=== PATIENT | female | born 1950 | race Caucasian/White ===

== ENCOUNTER → 2023-04-20 07:46 | Outpatient (REF) | payer MEDICARE, SELFPAY | LOC: RAD 07:46 | PROVIDERS: ATTENDING PHYSICIAN Family Medicine | DX: M85.80 Other specified disorders of bone density and structure, unspecified site (principal) | CPT/HCPCS: 77080 ==

== ENCOUNTER → 2023-04-26 08:50 | Outpatient (REF) | payer MEDICARE, SELFPAY | LOC: DHCBS MAIN 08:50 | PROVIDERS: ATTENDING PHYSICIAN Internal Medicine Cardiovascular Disease; FAMILY PHYSICIAN Family Medicine | DX: I49.8 Other specified cardiac arrhythmias (principal); I34.0 Nonrheumatic mitral (valve) insufficiency | CPT/HCPCS: 93306 ==

== ENCOUNTER 2023-05-24 14:46 | Emergency (ER) | payer MEDICARE, SELFPAY ==
[2023-05-24 15:16] VITALS: BP 144/92
[2023-05-24 15:39] LABS: % Basophils 0.5 % (0-2); % Eosinophils 0.5 % (0-6); % Immature Granulocytes 0.1 % (0-0.5); % Lymphocytes 25.7 % (20.5-51.1); % Monocytes 6.6 % (1.7-9.3); % Neutrophils 66.6 % (42.2-75.2); Absolute Lymphocytes 1.9 10^3/uL (1.2-3.4); Absolute Monocytes 0.5 10^3/uL (0.1-0.6); Absolute Neutrophils 4.8 10^3/uL (1.4-6.5); Hematocrit 40.5 % (37.0-47.0); Hemoglobin 14.5 g/dL (12.0-16.0); Mean Corp Hgb Conc. 35.8 g/dL (33.0-37.0); Mean Corpuscular Hgb 31.7 pg (27.0-31.0); Mean Corpuscular Volume 88.6 fL (81.0-99.0); Mean Platelet Volume 9.6 fL (7.4-10.4); Nucleated Red Blood Cells % 0 %; Platelet Count 258 10^3/uL (130-400); Red Blood Cell Count 4.57 10^6/uL (4.20-5.40); Red Cell Dist. Width 12.2 % (11.5-14.5); White Blood Cell Count 7.3 10^3/uL (4.8-10.8)
[2023-05-24 15:49] LABS: ALT (SGPT) 33 U/L (0-35); AST (SGOT) 35 U/L (14-36); Albumin 4.6 g/dl (3.5-5.0); Alkaline Phosphatase 70 U/L (38-126); Blood Urea Nitrogen 15 mg/dl (7-17); Calcium 9.7 mg/dl (8.4-10.2); Carbon Dioxide 23 mmol/L (22-30); Chloride 107 mmol/L (98-107); Glucose 115 mg/dl (70-99); Lipase 32 U/L (23-300); Potassium 4.3 mmol/L (3.5-5.1); Sodium 138 mmol/L (135-145); Total Protein 7.3 g/dl (6.3-8.2); eGFR > 60.00
[2023-05-24 18:10] VITALS: BMI 28.3
--- NOTE | 2023-05-24 18:20 | ED.GENMED ---
History of Present Illness
General
Chief Complaint: Abdominal Pain
Source: patient
Exam Limitations: none
Time Seen by Provider: 05/24/23 18:01
Travel History
Have you had any contact with someone who has COVID-19?: No
Do you have any symptoms of coronavirus? Fever > 100 degrees, chills, cough, shortness of breath, sore throat, loss of taste or smell, muscle aches, or headache?: No
History of Present Illness
History of Present Illness:
This is a 73 year old female that comes in with c/o left sided abd pain. States that she went to [facility] today as she started with this twinge pain in the left abd. States that it was a 10. Patient was told to come to the emergency room.
States that she felt as if she felt a hard band on the left side. Deneis any fever, chills, chest pain, SOB, nausea, vomiting, diarrhea, headache, dizziness, urinary burning.
Past History
Past History
ED Past Medical History: GERD and Other (Barretts esophagus, Diverticulitis); Negative Asthma, HTN or Hypercholesterolemia
ED Past Surgical History: , Gynecological (Lumpectomy, Bilateral oophorectomy) and Other (Incisional hernia repair, Cataracts)
Social History
Tobacco: Non-smoker
Alcohol: Occasional
Drug: None
Personal: Single
Living: alone
Employment: Retired
Family History
Family History: Other
Review of Systems
Review of Systems
All Other Systems: ROS reviewed and negative except as documented in HPI and ROS
Constitutional: Reports no symptoms; Denies fever or chills
EENT: Reports no symptoms
Respiratory: Reports no symptoms; Denies cough or trouble breathing
Cardiac: Reports no symptoms; Denies chest pain
ABD/GI: Reports abdominal pain; Denies nausea, vomiting or diarrhea
: Reports no symptoms; Denies dysuria, frequency or urgency
Musculoskeletal: Reports no symptoms
Skin: Reports no symptoms
Neurological: Reports no symptoms; Denies dizzy or headache
Psychiatric: Reports no symptoms
Phy Exam
General Physical Exam
General Presentation: well appearing and no apparent distress
General age: appears stated age
General Skin: warm and dry
General Habitus: elderly
General Mental: alert
General Hydration: appears well hydrated
ENT Exam
ENT Exam: TM's normal, pharynx normal and neck supple
Eye Exam
Eye Exam: EOMI
Cardiovascular Exam
Cardiovascular Exam: regular rate/rhythm, no edema, no murmur and normal peripheral pulses
Pulmonary Exam
Pulmonary Exam: lungs clear, no respiratory distress, no rales, chest non tender, no crackles, no rhonchi, no wheezing and no cough
Gastrointestinal Exam
Gastrointestinal Exam: normal bowel sounds, soft, no organomegaly, no pulsatile mass, non distended and tender (Left lower abd tenderness with palpation. No palpable mass noted)
Musculoskeletal Exam
Musculoskeletal Exam: full ROM and no edema
Skin Exam
Skin Exam: normal color, warm/dry, no rash and no petechia
Psychiatric Exam
Psychiatric Exam: normal mood/affect
Course
Orders/Labs/Results
Orders:
Orders
05/24/23 15:24
Complete Blood Count/With Diff Urgent
Comprehensive Metabolic Panel Urgent
Lipase Urgent
05/24/23 18:19
CT Abd/pelvis W Iv Cont Urgent
Comment:
Reason For Exam: left lower abd pain
0.9% Sodium Chloride 1000 ml [Nss] 1,000 ml IV BOLUS
Abnormal Lab Results
05/24/23
15:24
MCH 31.7 H pg
(27.0-31.0)
Glucose 115 H mg/dl
(70-99)
05/24/23 15:24
05/24/23 15:24
GLUCOSE Nonfasting. Otherwise labs normal. Lipase normal at 32
Vital Signs
Initial and Last Documented VS:
Initial Vital Signs
Temp Pulse Resp BP Pulse Ox
99.3 F 69 16 144/92 96
05/24/23 15:16 05/24/23 15:16 05/24/23 15:16 05/24/23 15:16 05/24/23 15:16
Last Documented Vital Signs
Temp Pulse Resp BP Pulse Ox
99.3 F 69 16 144/92 96
05/24/23 15:16 05/24/23 15:16 05/24/23 15:16 05/24/23 15:16 05/24/23 15:16
MDM/Problems Addressed
Differential Diagnosis Includes:
Diverticulitis, Hernia,
MDM/Problems Addressed:
This is a 73 year old female that comes in with c/o left sided abd pain that started yesterday. States that she went to [facility] and was sent to the ER. Patient states that she thought she felt a hard area like a band.
Will get labs and CT scan. IV fluids. Patient refused any pain medication
Back into see patient. Explained that her blood work is normal and her CT scan is negative for any acute process. There is a small umbilical hernia that is only fat filled and there is some scarring noted at the left lung base. Patient to follow up
with the family doctor. Patient to return with increased pain, fever or any other concerns.
Chronic conditions affecting care:
History of Diverticulitis,
Acute Exacerbation and/or Progression of Chronic Illness:
NA
*Radiology
Radiology exam reviewed: radiology read reviewed (CT-There is no acute process in the abdomen or pelvis. NO free fluid or free air. There is a small paraumbilical hernia, with an opening measuring approximately 18mm This contains only Fat. There is
a focal area of either scarring or atelectasis in the medial aspect of the left lower lobe, nonspeci)
*Pulse Oximetry
Patient hypoxic: no
*EKG
Interpreted by ED Provider?: NA
Rate: EKG- N/A
*County Coroner Interpretation
Rate: County Coroner- N/A
*Critical Care Note
Total Time (30-74mins, 75-104mins- exclusive of procedures): Not Applicable
ED Attending Note
-
Portions of this chart may have been created with voice recognition software.� Occasional wrong word or��sound alike� substitutions may have occurred due to the inherent limitations of voice recognition software.
Discharge Plan
Departure
Patient Disposition: Home (Routine Discharge)
Date of Disposition: 05/24/23
Time of Disposition: 19:48
Patient with high blood pressure during this ER visit?: Yes
Condition: Good
Covid-19: Not Applicable
Discharge Problem:
Abdominal pain
Instructions: Umbilical Hernia, Adult, Abdominal Pain, BLOOD PRESSURE
Prescriptions:
No Action
atenolol 25 MG tablet
25 mg PO DAILY
omeprazole 20 MG capsule,delayed release(DR/EC)
20 mg PO DAILY
Referrals:
Iraida Alonso MD [Family Provider] - Call in 1-3 days for appt
Activity Restrictions/Additional Instructions:
As discussed, your blood work is normal along with the CT scan. There is no acute process. There is a small umbilical hernia that is only fat filled. Please follow up with the family doctor for recheck. IF YOU HAVE INCREASED OR CHANGING PAIN, FEVER,
OR YOU HAVE ANY OTHER CONERNS PLEASE RETURN TO THE EMERGENCY ROOM.
Interventions
Interventions:
*Risk Screen - Suicide Last Done: 05/24/23 15:16
*General Assessment Last Done: 05/24/23 15:16
*Neglect/Abuse Screening Last Done: 05/24/23 15:16
ED- Fall Risk Assessment Last Done: 05/24/23 18:12
*ED COVID-19 Vaccine History Last Done: 05/24/23 15:16
MV-Riyryp-Wrvdydqmcj Assessment Last Done: 05/24/23 18:12
[2023-05-24] MEDS: NSS 1000 IV (18:41)
== END 2023-05-24 19:58 | disposition home or self-care (01) ==
LOC: EMR 14:46
PROVIDERS: Emergency Medicine; EMERGENCY PHYSICIAN Student in an Organized Health Care Education/Training Program; FAMILY PHYSICIAN Family Medicine
DX: R10.9 Unspecified abdominal pain (principal); R03.0 Elevated blood-pressure reading, without diagnosis of hypertension; K42.9 Umbilical hernia without obstruction or gangrene; Z87.19 Personal history of other diseases of the digestive system
CPT/HCPCS: 99284; 96360; 74177; 80053; 83690; 85025; Q9967

== ENCOUNTER → 2024-01-15 08:16 | Outpatient (REF) | payer MEDICARE, SELFPAY | LOC: WDC 08:16 | PROVIDERS: ATTENDING PHYSICIAN Obstetrics & Gynecology Gynecology; FAMILY PHYSICIAN Family Medicine | DX: Z12.31 Encounter for screening mammogram for malignant neoplasm of breast (principal) | CPT/HCPCS: 77063; 77067 ==

== ENCOUNTER → 2025-01-15 14:13 | Outpatient (REF) | payer MEDICARE, SELFPAY | LOC: WDC 14:13 | PROVIDERS: ATTENDING PHYSICIAN Obstetrics & Gynecology Gynecology; FAMILY PHYSICIAN Family Medicine | DX: Z12.31 Encounter for screening mammogram for malignant neoplasm of breast (principal) | CPT/HCPCS: 77063; 77067 ==